=== PATIENT | male | born 1935 | race Caucasian/White ===

== ENCOUNTER 2018-02-04 11:13 | Emergency (ER) | payer MEDICARE, BC ==
[~2018-02-04] VITALS: Ht 172.7 cm; Wt 83.9 kg
--- NOTE | 2018-02-04 11:19 | NUR ---
[id number] FROM HOME FOR SYCNOPE AFTER TRYING TO GET UP S/P DOING A BOWEL MOVEMENT. PT IS NOTED WITH RT FA SKIN TEAR, LEFT LOWER LEG ABRASION W/ DRIED BLOOD. GOWNED AND PLACED ON CONT MONITORING. NAD VSS RR EVEN AND UNLABORED. ALL NEEDS ARE ATTENDED, KEPT WARM AND COMFORTABLE. PENDING ER MD EVALUATION
[2018-02-04] MEDS ORDERED: IV NS 0.9% 1,000 ML BAG IV ONE (11:30)
[2018-02-04 11:56] LABS: BASOPHILS # (AUTO) 0.1 /CMM (0.0-0.2); EOSINOPHILS % (AUTO) 9.2 % (0.0-6.0); HEMATOCRIT 44 % (39-51); HEMOGLOBIN 14.9 g/dL (13.5-17.5); LYMPHOCYTES # (AUTO) 0.5 /CMM (0.8-4.8); LYMPHOCYTES % (AUTO) 7.4 % (20.0-44.0); MEAN CORPUSCULAR HGB CONC 34 g/dl (31.0-36.0); MEAN CORPUSCULAR VOLUME 84 fL (80-96); MONOCYTES # (AUTO) 0.5 /CMM (0.1-1.30); NEUTROPHILS # (AUTO) 4.9 /CMM (1.8-8.9); NEUTROPHILS % (AUTO) 75.4 % (43.0-81.0); PLATELET COUNT (AUTO) 141 /CMM (150-450); RDW COEFFICIENT OF VARIATION 17.6 (11.5-15.0); RED BLOOD CELL COUNT(AUTO) 5.18 MIL/uL (4.5-6.0); WHITE BLOOD COUNT (AUTO) 6.6 K/uL (4.3-11.0)
[2018-02-04 12:06] LABS: CALCIUM, SERUM 8.6 mg/dL (8.5-10.1); CARBON DIOXIDE 25 mmol/L (21-32); CHLORIDE 104 mmol/L (98-107); CREATININE 1.3 mg/dL (0.6-1.3); GLUCOSE 90 mg/dL (74-106); POTASSIUM 3.9 mmol/L (3.5-5.1); SODIUM SERUM 137 mmol/L (136-145); UREA NITROGEN, BLOOD 23 mg/dL (7-18)
[2018-02-04 12:11] LABS: INR 0.93 (0.85-1.15)
--- NOTE | 2018-02-04 13:57 | NUR ---
CALLED [facility] AND SPOKE WITH ROOM SERVICE WAITER YADY TO ARRANGE A BLS TRANSPORT BACK TO THE PT'S BOARDING CARE. WAS GIVEN A CIRCULATION MAN TIME OF 1430 TRIP#: [id number]
--- NOTE | 2018-02-04 14:45 | NUR ---
Patient discharged to home in stable condition. Written and verbal after care instructions given. Patient's family verbalizes understanding of instruction.
[2018-02-04 15:10] VITALS: BP 122/65
== END 2018-02-04 14:45 | disposition home or self-care (01) ==
LOC: ER 11:14
DX: R55 Syncope and collapse (principal); B37.89 Other sites of candidiasis; L30.4 Erythema intertrigo; C90.00 Multiple myeloma not having achieved remission
CPT/HCPCS: 36415; 80048-TC; 84484-TC; 85025-TC; 85730-TC; A4606; J7030; Z7610